=== PATIENT | male | born 1945 | race Two or more races ===

== ENCOUNTER 2022-06-14 09:17 | Emergency (ER) | payer MEDICAID, OTHER ==
[~2022-06-14] VITALS: Ht 167.6 cm; Wt 76.0 kg
[2022-06-14 09:38] VITALS: BP 145/57
[2022-06-14 10:57] LABS: Basophils # (auto) 0.1 10 ^3/uL (0-0.2); Eosinophils # (auto) 0.1 10 ^3/uL (0-0.8); Eosinophils % (auto) 1.5 % (0.0-7.0); Hematocrit 36.3 % (41.0-53.0); Lymphocytes # (auto) 1.3 10 ^3/uL (0.4-5.4); Lymphocytes % (auto) 22.9 % (10.0-50.0); Mean Corpuscular Hemoglobin 29.3 pg (28.0-32.0); Mean Corpuscular Volume 88.8 fL (80.0-100.0); Monocytes # (auto) 0.8 10 ^3/uL (0-1.3); Monocytes % (auto) 13.5 % (0.0-12.0); Neutrophils # (auto) 3.6 10 ^3/uL (1.6-8.6); Neutrophils % (auto) 61.1 % (37.0-80.0); Nucleated Red Blood Cells % 0.1 %; Red Blood Cells 4.09 10^6/uL (4.5-5.90); Red Cell Distribution Width 15.7 % (11.8-14.3); White Blood Cell 5.9 10^3/uL (4.4-10.8)
[2022-06-14 11:11] LABS: INR 0.93 (0.9-1.15); Partial Thromboplastin Time 30.6 sec (24.6-33.4)
[2022-06-14 11:14] LABS: Albumin 3.4 g/dL (3.4-5.0); BUN/Creatinine Ratio 18.9; Potassium 5.1 mmol/L (3.5-5.1)
[2022-06-14 11:17] LABS: Bilirubin, Total 0.2 mg/dL (0.2-1.0); Total Protein 7.6 g/dL (6.4-8.2)
== END 2022-06-14 20:11 | disposition home or self-care (01) ==
LOC: ER 09:17
DX: S81.801D Unspecified open wound, right lower leg, subsequent encounter (principal); I10 Essential (primary) hypertension; E11.9 Type 2 diabetes mellitus without complications; X58.XXXD Exposure to other specified factors, subsequent encounter
CPT/HCPCS: 36415; 71045; 80053; 83605; 84484; 85025; 85610; 85730; 87040